=== PATIENT | male | born 1950 | race Two or more races ===

== ENCOUNTER 2018-03-01 11:54 | Outpatient (CLI) | payer OTHER | END 2018-03-01 12:00 | disposition home or self-care (01) | LOC: NUCLEAR 11:54 | DX: I87.2 Venous insufficiency (chronic) (peripheral) (principal) ==

== ENCOUNTER 2018-03-11 09:30 | Emergency (ER) | payer OTHER ==
[~2018-03-11] VITALS: Ht 172.7 cm; Wt 96.2 kg
[2018-03-11] MEDS ORDERED: AMLODIPINE BESYL5 MG (10:46)
[2018-03-11] MEDS ORDERED: SYNTHOID (10:47)
== END 2018-03-11 11:50 | disposition home or self-care (01) ==
LOC: ER 09:30 → EDBD 09:58 → ER 11:50
DX: S91.135A Puncture wound without foreign body of left lesser toe(s) without damage to nail, initial encounter (principal); W26.8XXA Contact with other sharp object(s), not elsewhere classified, initial encounter; Y93.89 Activity, other specified; Y92.017 Garden or yard in single-family (private) house as the place of occurrence of the external cause; Y99.8 Other external cause status

== ENCOUNTER 2018-03-17 10:18 | Outpatient (CLI) | payer OTHER ==
[~2018-03-17 10:18] MED LIST: AMLODIPINE BESYL5 MG; SYNTHOID
== END 2018-03-17 10:33 | disposition home or self-care (01) ==
LOC: NUCLEAR 10:18
DX: I83.023 Varicose veins of left lower extremity with ulcer of ankle (principal); I73.9 Peripheral vascular disease, unspecified